=== PATIENT | female | born 1975 | race American Indian/Alaskan Native ===

== ENCOUNTER 2016-09-20 02:26 | Emergency (ER) | payer MEDICAID ==
[2016-09-20 03:09] VITALS: BP 120/74
[2016-09-20] MEDS ORDERED: traMADol 50 MG Tab PO ONE (03:21)
--- NOTE | 2016-09-20 03:25 | EDM.PDOC ---
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 LMP 3-19. denies dysuria. Sx tonight got worried. - Related Data Allergies/ADRs: Allergies Allergy/AdvReac Type Severity Reaction Status Date / Time codeine Allergy Chest Verified 09/20/16 03:11 Tightness Home Meds: Home Meds traMADol [Ultram] 50 mg PO BID 07/12/15 [History] Cyclobenzaprine [Flexeril] 10 mg PO Q8H PRN 01/02/16 [History] Naproxen Sodium 220 mg PO DAILY 01/02/16 [History] Ranitidine [Zantac] 150 mg PO DAILY 01/02/16 [History] SitaGLIPtin [Januvia] 50 mg PO DAILY 01/02/16 [History] glyBURIDE [Micronase] 10 mg PO BIDMEALS 01/02/16 [History] Past Medical History - Past Health History Medical/Surgical History: Denies Medical/Surgical History HEENT History: Reports: Impaired vision Other HEENT History: WEARS CORRECTIVE LENSES Cardiovascular History: Reports: None Respiratory History: Reports: None Gastrointestinal History: Reports: Other (see below) Other Gastrointestinal History: UMBILICAL HERNIA; VENTRAL HERNIA; ABNORMAL LIVER FUNCTION Genitourinary History: Reports: None 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: 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 History: Reports: Fracture, Other (see below) Other 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 History: DEGENERATIVE JOINT DISEASE; CARPAL TUNNEL SYNDROME; EPICONDYLITIS OF ELBOW; BILAT KNEE PAIN; Neurological History: Reports: Other (see below) Other Neuro History: CHRONIC HEADACHES Psychiatric History: Reports: Anxiety, Depression Endocrine/Metabolic History: Reports: Diabetes, type II, Obesity/BMI 30+ Hematologic History: Reports: Anemia Immunologic History: Reports: None Oncologic (Cancer) History: Reports: None Dermatologic History: Reports: None - Infectious Disease History Infectious Disease History: Reports: Chicken pox - Past Surgical History Head Surgeries/Procedures: Reports: None Cardiovascular Surgical History: Reports: None Respiratory Surgical History: Reports: None GI Surgical History: Reports: Cholecystectomy, Hernia repair/other Female Surgical History: Reports: None Endocrine Surgical History: Reports: None Neurological Surgical History: Reports: None 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 Surgical History: Reports: Arthroscopic knee, ORIF, Other (see below) Other 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 Surgeries/Procedures:: INJECTION KNEE, ANKLE Oncologic Surgical History: Reports: None Dermatological Surgical History: Reports: None Social & Family History - Tobacco Use Smoking Status *Q: Current Every Day Smoker Years of Tobacco use: 20 Packs/Tins Daily: 4 Used Tobacco, but Quit: No Month Tobacco Last Used: 11/2015 Second Hand Smoke Exposure: Yes - Caffeine Use Caffeine Use: Reports: Coffee, Soda - Alcohol Use Days Per Week of Alcohol Use: 0 - Recreational Drug Use Recreational Drug Use: No Drug Use in Last 12 Months: No ED ROS GENERAL - Review of Systems Review Of Systems: ROS reveals no pertinent complaints other than HPI. ED EXAM, GI/ABD - Physical Exam Exam: See Below Exam Limited By: No limitations General Appearance: alert, WD/WN, mild distress, other (upset) Ears: hearing grossly normal Throat/Mouth: Normal voice, No airway compromise Head: atraumatic Neck: non-tender, full range of motion Respiratory/Chest: no respiratory distress Cardiovascular: regular rate, rhythm GI/Abdominal: tenderness, other (suprapubic). No: guarding, rebound, rigidity Neurological: alert, oriented, normal cognition, normal gait, no motor/sensory deficits Psychiatric: flat affect Skin Exam: Warm, Dry Lymphatic: no adenopathy Course - Vital Signs Last Recorded V/S: Last Vital Signs Temp 35.7 C 09/20/16 02:53 Pulse 80 09/20/16 02:53 Resp 18 09/20/16 02:53 BP 120/74 09/20/16 02:53 Pulse Ox 100 09/20/16 02:53 - Orders/Labs/Meds Labs: Laboratory Tests 09/20/16 09/20/16 09/20/16 Range/Units 02:54 02:54 02:54 Urine Color Red (YELLOW) Urine Appearance Turbid (CLEAR) Urine pH 6.0 (5.0-9.0) Ur Specific [place] 1.020 (1.005-1.030) Urine Protein 30 H (NEGATIVE) Urine Glucose (UA) 500 H (NEGATIVE) Urine Ketones Trace H (NEGATIVE) Urine Occult Blood Large H (NEGATIVE) Urine Nitrite Negative (NEGATIVE) Urine Bilirubin Negative (NEGATIVE) Urine Urobilinogen 0.2 (0.2-1.0) mg/dL Ur Leukocyte Esterase Negative (NEGATIVE) Urine RBC Semi-packed H /HPF Urine WBC Not seen (0-5/HPF) /HPF Urine Bacteria Rare (0-FEW/HPF) /HPF Urine HCG, Qual Negative Urine Opiates Screen Negative (NEGATIVE) Ur Oxycodone Screen Negative (NEGATIVE) Urine Methadone Screen Negative (NEGATIVE) Ur Barbiturates Screen Negative (NEGATIVE) U Tricyclic Antidepress Negative (NEGATIVE) Ur Phencyclidine Scrn Negative (NEGATIVE) Ur Amphetamine Screen Negative (NEGATIVE) U Methamphetamines Scrn Negative (NEGATIVE) Urine MDMA Screen Negative (NEGATIVE) U Benzodiazepines Scrn Negative (NEGATIVE) Urine Cocaine Screen Negative (NEGATIVE) U Marijuana (THC) Screen Negative (NEGATIVE) - Re-Assessments/Exams Free Text/Narrative Re-Assessment/Exam: 09/20/16 03:23 results discussed with Pt. Departure - Departure Time of Disposition: 03:25 Disposition: Home, Self-Care 01 Condition: good Clinical Impression: Dysmenorrhea Instructions: Dysmenorrhea, [id number] Forms: ED Department Discharge Additional Instructions: 1) rest and avoid bending lifting straining 2) see clinic tomorrow for PELVIC ULTRASOUND.
== END 2016-09-20 03:29 | disposition home or self-care (01) ==
LOC: DL.ED 02:26
DX: N94.6 Dysmenorrhea, unspecified (principal); F41.9 Anxiety disorder, unspecified; F32.9 Major depressive disorder, single episode, unspecified; E11.9 Type 2 diabetes mellitus without complications; E66.9 Obesity, unspecified; F17.210 Nicotine dependence, cigarettes, uncomplicated; Z88.5 Allergy status to narcotic agent; Z79.899 Other long term (current) drug therapy; Z86.2 Personal history of diseases of the blood and blood-forming organs and certain disorders involving the immune mechanism
CPT/HCPCS: 80305; 81001; 81025; 99283; A9270

== ENCOUNTER 2017-01-09 16:40 | Emergency (ER) | payer MEDICAID ==
--- NOTE | 2017-01-09 17:03 | EDM.PDOC ---
ED HPI GENERAL MEDICAL PROBLEM - General Chief Complaint: ENT Problem Stated Complaint: SEVERE TOOTH,HEADACHE/EARACHE, [id number] Time Seen by Provider: 01/09/17 18:15 Source of Information: Reports: Patient, RN, RN Notes Reviewed History Limitations: Reports: No Limitations - History of Present Illness INITIAL COMMENTS - FREE TEXT/NARRATIVE: Complaining of dental pain at right upper tooth/gums. No fevers or chills. Onset: Today Location: Reports: Other (mouth) Quality: Reports: Ache Severity: Severe Improves with: Reports: None Worsens with: Reports: None Associated Symptoms: Reports: No Other Symptoms Right Upper Oral/Mouth Pain Score (Numeric/FACES): 8 - Related Data Allergies Allergy/AdvReac Type Severity Reaction Status Date / Time codeine Allergy Chest Verified 01/09/17 17:17 Tightness Home Meds: Home Meds traMADol [Ultram] 50 mg PO BID 07/12/15 [History] Cyclobenzaprine [Flexeril] 10 mg PO Q8H PRN 01/02/16 [History] Naproxen Sodium 220 mg PO DAILY 01/02/16 [History] Ranitidine [Zantac] 150 mg PO DAILY 01/02/16 [History] SitaGLIPtin [Januvia] 50 mg PO DAILY 01/02/16 [History] glyBURIDE [Micronase] 10 mg PO BIDMEALS 01/02/16 [History] Past Medical History - Past Health History Medical/Surgical History: Denies Medical/Surgical History HEENT History: Reports: Impaired Vision Other HEENT History: WEARS CORRECTIVE LENSES Cardiovascular History: Reports: None Respiratory History: Reports: None Gastrointestinal History: Reports: Other (See Below) Other Gastrointestinal History: UMBILICAL HERNIA; VENTRAL HERNIA; ABNORMAL LIVER FUNCTION Genitourinary History: Reports: None 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 History: Reports: Fracture, Other (See Below) Other 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 History: DEGENERATIVE JOINT DISEASE; CARPAL TUNNEL SYNDROME; EPICONDYLITIS OF ELBOW; BILAT KNEE PAIN; Neurological History: Reports: Other (See Below) Other Neuro History: CHRONIC HEADACHES Psychiatric History: Reports: Anxiety, Depression Endocrine/Metabolic History: Reports: Diabetes, Type II, Obesity/BMI 30+ Hematologic History: Reports: Anemia Immunologic History: Reports: None Oncologic (Cancer) History: Reports: None Dermatologic History: Reports: None - Infectious Disease History Infectious Disease History: Reports: Chicken Pox - Past Surgical History GI Surgical History: Reports: Cholecystectomy, Hernia Repair/Other 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 Surgical History: Reports: Arthroscopic Knee, ORIF, Other (See Below) Social & Family History - Tobacco Use Smoking Status *Q: Current Every Day Smoker Years of Tobacco use: 20 Packs/Tins Daily: 4 Used Tobacco, but Quit: No Month Tobacco Last Used: 11/2015 Second Hand Smoke Exposure: Yes - Caffeine Use Caffeine Use: Reports: Coffee, Soda - Alcohol Use Days Per Week of Alcohol Use: 0 - Recreational Drug Use Recreational Drug Use: No Drug Use in Last 12 Months: No ED ROS ENT - Review of Systems Review Of Systems: ROS reveals no pertinent complaints other than HPI. ED EXAM, ENT - Physical Exam Exam: See Below Exam Limited By: No Limitations General Appearance: Alert, WD/WN, No Apparent Distress, Obese Eye Exam: Bilateral Eye: Normal Inspection Ears: Normal External Exam, Normal Canal, Hearing Grossly Normal, Normal TMs Nose: Normal Inspection, Normal Mucousa, No Blood Mouth/Throat: Other (dental abscess at right maxillary premolar and posterior molar without fluctuance or drainage. No facial swelling. ) Head: Atraumatic, Normocephalic Neck: Normal Inspection, Supple, Non-Tender, Full Range of Motion Respiratory/Chest: No Respiratory Distress Cardiovascular: Normal Peripheral Pulses, Regular Rate, Rhythm, No Edema, No Gallop, No JVD, No Murmur, No Rub Neurological: Alert, Oriented, CN II-XII Intact, Normal Cognition, Normal Gait, Normal Reflexes, No Motor/Sensory Deficits Psychiatric: Normal Affect, Normal Mood Skin: Warm, Dry, Intact, Normal Color, No Rash Lymphatic: No Adenopathy Course - Vital Signs Last Recorded V/S: Last Vital Signs Temp 36.1 C 01/09/17 17:17 Pulse 85 01/09/17 17:17 Resp 18 01/09/17 17:17 BP 150/89 H 01/09/17 17:17 Pulse Ox 98 01/09/17 17:17 Departure - Departure Time of Disposition: 18:25 Disposition: Home, Self-Care 01 Condition: Good Clinical Impression: Dental abscess - Discharge Information Instructions: Dental Abscess, [id number] Forms: ED Department Discharge Additional Instructions: RX: Clindamycin 300mg. RX: Tramadol 50mg. RX: Viscous lidocaine 2%. Follow with dentist as scheduled.
[2017-01-09 17:21] VITALS: BP 150/89
[2017-01-09] MEDS ORDERED: Clindamycin HCl 150 MG Cap PO ONE (18:25)
[2017-01-09] MEDS ORDERED: traMADol 50 MG Tab PO ONE (18:26)
[2017-01-09] MEDS ORDERED: Lidocaine 2% Viscous Solution 15 ML Cup PO ONE (18:26)
== END 2017-01-09 18:41 | disposition home or self-care (01) ==
LOC: DL.ED 16:40
DX: K04.7 Periapical abscess without sinus (principal); F41.9 Anxiety disorder, unspecified; F32.9 Major depressive disorder, single episode, unspecified; E11.9 Type 2 diabetes mellitus without complications; F17.210 Nicotine dependence, cigarettes, uncomplicated; E66.9 Obesity, unspecified; Z68.39 Body mass index [BMI] 39.0-39.9, adult; Z90.49 Acquired absence of other specified parts of digestive tract; Z98.890 Other specified postprocedural states; Z88.5 Allergy status to narcotic agent; Z79.899 Other long term (current) drug therapy
CPT/HCPCS: 99282; A9270

== ENCOUNTER 2017-07-02 17:40 | Emergency (ER) | payer SELFPAY ==
[2017-07-02] MEDS ORDERED: Amoxicillin 500 MG Cap PO ONE (19:56)
[2017-07-02] MEDS ORDERED: Ketorolac 30 MG/ML SDV IM ONE (19:56)
--- NOTE | 2017-07-02 20:00 | EDM.PDOC ---
ED HPI GENERAL MEDICAL PROBLEM - General Chief Complaint: ENT Problem Stated Complaint: ABCESS TOOTH, [id number] Time Seen by Provider: 07/02/17 19:47 Source of Information: Reports: Patient History Limitations: Reports: No Limitations - History of Present Illness INITIAL COMMENTS - FREE TEXT/NARRATIVE: Ed with c/o right upper dental pain radiating toright ear, started last susan. Has tried aleve and ambesol and not helping. Reports attempting to be seen by dentist at [facility] today and was told they were full and to try again tomorrow. No chills or fever. Right Upper Gums Pain Score (Numeric/FACES): 9 - Related Data Allergies Allergy/AdvReac Type Severity Reaction Status Date / Time codeine Allergy Chest Verified 07/02/17 17:47 Tightness Home Meds: Home Meds traMADol [Ultram] 50 mg PO BID 07/12/15 [History] Cyclobenzaprine [Flexeril] 10 mg PO Q8H PRN 01/02/16 [History] Naproxen Sodium 220 mg PO DAILY 01/02/16 [History] Ranitidine [Zantac] 150 mg PO DAILY 01/02/16 [History] SitaGLIPtin [Januvia] 50 mg PO DAILY 01/02/16 [History] glyBURIDE [Micronase] 10 mg PO BIDMEALS 01/02/16 [History] Past Medical History - Past Health History Medical/Surgical History: Denies Medical/Surgical History HEENT History: Reports: Impaired Vision Other HEENT History: WEARS CORRECTIVE LENSES Cardiovascular History: Reports: None Respiratory History: Reports: None Gastrointestinal History: Reports: Other (See Below) Other Gastrointestinal History: UMBILICAL HERNIA; VENTRAL HERNIA; ABNORMAL LIVER FUNCTION Genitourinary History: Reports: None 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: Reports: Fracture, Other (See Below) Other 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 History: DEGENERATIVE JOINT DISEASE; CARPAL TUNNEL SYNDROME; EPICONDYLITIS OF ELBOW; BILAT KNEE PAIN; Neurological History: Reports: Other (See Below) Other Neuro History: CHRONIC HEADACHES Psychiatric History: Reports: Anxiety, Depression Endocrine/Metabolic History: Reports: Diabetes, Type II, Obesity/BMI 30+ Hematologic History: Reports: Anemia Immunologic History: Reports: None Oncologic (Cancer) History: Reports: None Dermatologic History: Reports: None - Infectious Disease History Infectious Disease History: Reports: Chicken Pox - Past Surgical History Head Surgeries/Procedures: Reports: None GI Surgical History: Reports: Cholecystectomy, Hernia Repair/Other 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 Surgical History: Reports: Arthroscopic Knee, ORIF, Other (See Below) Social & Family History - Tobacco Use Smoking Status *Q: Current Every Day Smoker Years of Tobacco use: 24 Packs/Tins Daily: 0.1 Used Tobacco, but Quit: No Month Tobacco Last Used: 11/2015 Second Hand Smoke Exposure: Yes - Caffeine Use Caffeine Use: Reports: Coffee, Soda - Alcohol Use Days Per Week of Alcohol Use: 0 - Recreational Drug Use Recreational Drug Use: No Drug Use in Last 12 Months: No ED ROS ENT - Review of Systems Review Of Systems: See Below Constitutional: Denies: Fever, Chills HEENT: Reports: Dental Pain, Ear Pain (right) Respiratory: Reports: No Symptoms Cardiovascular: Reports: No Symptoms GI/Abdominal: Reports: No Symptoms : Reports: No Symptoms 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: Reports: No Symptoms ED EXAM, ENT - Physical Exam Exam: See Below Exam Limited By: No Limitations General Appearance: Alert, Mild Distress Eye Exam: Bilateral Eye: EOMI Ears: Normal External Exam, Normal TMs Nose: Normal Inspection Mouth/Throat: Dental Pain, Dental Tenderness. No: Normal Teeth (door dentation , multiple areas of decay in molar area. right lateral gum mild swelling and tender right inscisor to upper 2nd molar. mild maxillary tenderness on right mid with palpation), Dental Trauma Head: Atraumatic, Normocephalic Neck: Lymphadenopathy (R) Respiratory/Chest: No Respiratory Distress, Lungs Clear, Normal Breath Sounds Cardiovascular: Normal Peripheral Pulses, Regular Rate, Rhythm GI/Abdominal: Normal Bowel Sounds Neurological: Alert, Oriented Psychiatric: Normal Affect Skin: Warm, Dry, Intact, Normal Color Course - Vital Signs Last Recorded V/S: Last Vital Signs Temp 98.4 F 07/02/17 20:06 Pulse 74 07/02/17 20:06 Resp 16 07/02/17 20:06 BP 148/90 H 07/02/17 20:06 Pulse Ox 98 07/02/17 20:06 - Orders/Labs/Meds Meds: Medications Discontinued Medications Generic Name Dose Route Start Last Admin Trade Name Freq PRN Reason Stop Dose Admin Amoxicillin 500 mg 07/02/17 19:56 07/02/17 20:02 Amoxil PO 07/02/17 19:57 500 mg ONETIME ONE Administration Ketorolac Tromethamine 30 mg 07/02/17 19:56 07/02/17 20:02 Toradol IM 07/02/17 19:57 30 mg ONETIME ONE Administration Departure - Departure Time of Disposition: 20:00 Disposition: Home, Self-Care 01 Condition: Good Clinical Impression: Dental caries, Pain due to dental caries, Dental abscess - Discharge Information Instructions: Dental Abscess, [id number] Referrals: Leyda Almonte MD [Primary Care Provider] - Forms: ED Department Discharge Additional Instructions: amoxicillin 500mg one three times daily for one week tramadol as prescribed by PCP as needed for pain, may take one tylenol with tramadol follow up with dentist tomorrow
[2017-07-02 20:06] VITALS: BP 148/90
== END 2017-07-02 20:16 | disposition home or self-care (01) ==
LOC: DL.ED 17:40
DX: K02.9 Dental caries, unspecified (principal); K04.7 Periapical abscess without sinus; E11.9 Type 2 diabetes mellitus without complications; F17.210 Nicotine dependence, cigarettes, uncomplicated; Z88.5 Allergy status to narcotic agent; Z79.899 Other long term (current) drug therapy
CPT/HCPCS: 96372; 99282; A9270; J1885

== ENCOUNTER 2017-08-15 21:11 | Emergency (ER) | payer MEDICAID ==
[2017-08-15 21:37] VITALS: BP 120/83
--- NOTE | 2017-08-15 22:51 | EDM.PDOC ---
ED HPI GENERAL MEDICAL PROBLEM - General Chief Complaint: General Stated Complaint: SIDE PAIN [id number] Time Seen by Provider: 08/15/17 22:00 Source of Information: Reports: Patient History Limitations: Reports: No Limitations - History of Present Illness INITIAL COMMENTS - FREE TEXT/NARRATIVE: c/o pain to right lateral ribs. Reports slipping on dryer sheet in laundry room , then falling on to left side over grandchild"s walker. Right Lower Chest Pain Score (Numeric/FACES): 9 - Related Data Allergies Allergy/AdvReac Type Severity Reaction Status Date / Time codeine Allergy Chest Verified 08/15/17 21:37 Tightness Home Meds: Home Meds traMADol [Ultram] 50 mg PO BID 07/12/15 [History] Cyclobenzaprine [Flexeril] 10 mg PO Q8H PRN 01/02/16 [History] Naproxen Sodium 220 mg PO DAILY 01/02/16 [History] Ranitidine [Zantac] 150 mg PO DAILY 01/02/16 [History] SitaGLIPtin [Januvia] 50 mg PO DAILY 01/02/16 [History] glyBURIDE [Micronase] 10 mg PO BIDMEALS 01/02/16 [History] Past Medical History - Past Health History Medical/Surgical History: Denies Medical/Surgical History HEENT History: Reports: Impaired Vision Other HEENT History: WEARS CORRECTIVE LENSES Cardiovascular History: Reports: None Respiratory History: Reports: None Gastrointestinal History: Reports: Other (See Below) Other Gastrointestinal History: UMBILICAL HERNIA; VENTRAL HERNIA; ABNORMAL LIVER FUNCTION Genitourinary History: Reports: 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: 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: Fracture, Other (See Below) Other 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 History: DEGENERATIVE JOINT DISEASE; CARPAL TUNNEL SYNDROME; EPICONDYLITIS OF ELBOW; BILAT KNEE PAIN; Neurological History: Reports: Other (See Below) Other Neuro History: CHRONIC HEADACHES Psychiatric History: Reports: Anxiety, Depression Endocrine/Metabolic History: Reports: Diabetes, Type II, Obesity/BMI 30+ Hematologic History: Reports: Anemia Immunologic History: Reports: None Oncologic (Cancer) History: Reports: None Dermatologic History: Reports: None - Infectious Disease History Infectious Disease History: Reports: Chicken Pox - Past Surgical History Head Surgeries/Procedures: Reports: None GI Surgical History: Reports: Cholecystectomy, Hernia Repair/Other 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 Surgical History: Reports: Arthroscopic Knee, ORIF, Other (See Below) Social & Family History - Family History Family Medical History: Noncontributory - Tobacco Use Smoking Status *Q: Current Every Day Smoker Years of Tobacco use: 21 Packs/Tins Daily: 0.1 Used Tobacco, but Quit: No Month Tobacco Last Used: 11/2015 Second Hand Smoke Exposure: No - Caffeine Use Caffeine Use: Reports: None - Alcohol Use Days Per Week of Alcohol Use: 0 - Recreational Drug Use Recreational Drug Use: No Drug Use in Last 12 Months: No ED ROS GENERAL - Review of Systems Review Of Systems: See Below Constitutional: Reports: No Symptoms HEENT: Reports: No Symptoms Respiratory: Reports: Pleuritic Chest Pain. Denies: Shortness of Breath Cardiovascular: Reports: No Symptoms GI/Abdominal: Reports: No Symptoms ED EXAM, GENERAL - Physical Exam Exam: See Below Exam Limited By: No Limitations General Appearance: Alert, Mild Distress Eye Exam: Bilateral Eye: EOMI Ears: Normal External Exam Nose: Normal Inspection Throat/Mouth: Normal Inspection Head: Atraumatic, Normocephalic Neck: Normal Inspection Respiratory/Chest: No Respiratory Distress, Lungs Clear, Splinting. No: Chest Non-Tender, Rhonchi, Wheezing, Pleural Rub Cardiovascular: Normal Peripheral Pulses, Regular Rate, Rhythm GI/Abdominal: Soft Extremities: Normal Inspection Neurological: Alert, Oriented, Normal Cognition Psychiatric: Normal Affect Skin Exam: Warm, Dry, Intact, Normal Color. No: Ecchymosis Course - Vital Signs Last Recorded V/S: Last Vital Signs Temp 98.6 F 08/15/17 21:25 Pulse 90 08/15/17 21:25 Resp 20 08/15/17 21:25 BP 120/83 08/15/17 21:25 Pulse Ox 100 08/15/17 21:25 - Radiology Interpretation Free Text/Narrative:: CXR : Normal Departure - Departure Time of Disposition: 23:56 Disposition: Home, Self-Care 01 Condition: Good Clinical Impression: Rib pain on right side - Discharge Information Instructions: Rib Contusion Referrals: Leyda Almonte MD [Primary Care Provider] - Forms: ED Department Discharge Additional Instructions: continue home medication tylenol 650mg every 4 hours as needed, may continue with tramadol as previous order twice daily with ibuprofen 600mg one time mid day as needed for pain deep breathing exercises every 1-2 hours while awake
== END 2017-08-16 00:09 | disposition home or self-care (01) ==
LOC: DL.ED 21:11
DX: R07.81 Pleurodynia (principal); F32.9 Major depressive disorder, single episode, unspecified; E11.9 Type 2 diabetes mellitus without complications; F17.210 Nicotine dependence, cigarettes, uncomplicated; Z79.84 Long term (current) use of oral hypoglycemic drugs; Z79.899 Other long term (current) drug therapy; Z88.5 Allergy status to narcotic agent; W01.0XXA Fall on same level from slipping, tripping and stumbling without subsequent striking against object, initial encounter; Y92.89 Other specified places as the place of occurrence of the external cause
CPT/HCPCS: 71100-RT; 99283

== ENCOUNTER 2018-01-26 20:28 | Emergency (ER) | payer MEDICAID ==
[2018-01-26] MEDS ORDERED: Ondansetron 4 MG Tab.DIS PO ONE (20:29)
[2018-01-26] MEDS ORDERED: Sodium Chloride 0.9% 10 ML Syringe FLUSH PRN (21:16)
[2018-01-26] MEDS ORDERED: Sodium Chloride 0.9% 1,000 ML IV ONE (21:22)
[2018-01-26] MEDS ORDERED: Ondansetron 4 MG/2 ML SDV IV ONE (21:22)
--- NOTE | 2018-01-26 21:27 | EDM.PDOC ---
ED HPI GENERAL MEDICAL PROBLEM - General Chief Complaint: Abdominal Pain Stated Complaint: PAIN IN STOMACH Time Seen by Provider: 01/26/18 21:16 Source of Information: Reports: Patient History Limitations: Reports: No Limitations - History of Present Illness INITIAL COMMENTS - FREE TEXT/NARRATIVE: she comes emergency department today with complaints of abdominal pain. Over the past 2 weeks she has had persistent abdominal pain that is slowly gotten worse. She does have a history of an abdominal wall hernia that has been repaired in the past and it feels like it is opened up again. When she stands up she feels something move into her skin and is quite painful. Over the past couple of days the pain is gotten worse and is more difficult for her to push the lump back in. She has had nausea vomiting and some diarrhea. Everything that she eats or drinks goes right through her and she ends up with diarrhea. No fever no chills. No chest pain no shortness of breath or difficulty breathing. No hematuria dysuria or urinary frequency. No black or tarry stools. No flank pain. Abdomen Pain Score (Numeric/FACES): 7 - Related Data Allergies Allergy/AdvReac Type Severity Reaction Status Date / Time codeine Allergy Chest Verified 01/26/18 20:56 Tightness Home Meds: Home Meds traMADol [Ultram] 50 mg PO BID 07/12/15 [History] Cyclobenzaprine [Flexeril] 10 mg PO Q8H PRN 01/02/16 [History] Naproxen Sodium 220 mg PO DAILY 01/02/16 [History] Ranitidine [Zantac] 150 mg PO DAILY 01/02/16 [History] SitaGLIPtin [Januvia] 50 mg PO DAILY 01/02/16 [History] glyBURIDE [Micronase] 10 mg PO BIDMEALS 01/02/16 [History] Insulin Aspart [NovoLOG] 3 units SQ DAILY 01/26/18 [History] Past Medical History - Past Health History Medical/Surgical History: Denies Medical/Surgical History HEENT History: Reports: Impaired Vision Other HEENT History: WEARS CORRECTIVE LENSES Cardiovascular History: Reports: None Respiratory History: Reports: None Gastrointestinal History: Reports: Other (See Below) Other Gastrointestinal History: UMBILICAL HERNIA; VENTRAL HERNIA; ABNORMAL LIVER FUNCTION Genitourinary History: Reports: None DIRECTOR INPATIENT HEADACHE PROGRAM History: Reports: 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 History: Reports: Fracture, Other (See Below) Other 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 History: DEGENERATIVE JOINT DISEASE; CARPAL TUNNEL SYNDROME; EPICONDYLITIS OF ELBOW; BILAT KNEE PAIN; Neurological History: Reports: Other (See Below) Other Neuro History: CHRONIC HEADACHES Psychiatric History: Reports: Anxiety, Depression Endocrine/Metabolic History: Reports: Diabetes, Type II, Obesity/BMI 30+ Hematologic History: Reports: Anemia Immunologic History: Reports: None Oncologic (Cancer) History: Reports: None Dermatologic History: Reports: None - Infectious Disease History Infectious Disease History: Reports: Chicken Pox - Past Surgical History Head Surgeries/Procedures: Reports: None GI Surgical History: Reports: Cholecystectomy, Hernia Repair/Other 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 Surgical History: Reports: Arthroscopic Knee, ORIF, Other (See Below) Social & Family History - Family History Family Medical History: Noncontributory - Tobacco Use Smoking Status *Q: Current Some Day Smoker Years of Tobacco use: 20 Packs/Tins Daily: 1 - Caffeine Use Caffeine Use: Reports: Soda - Recreational Drug Use Recreational Drug Use: No ED ROS GENERAL - Review of Systems Review Of Systems: ROS reveals no pertinent complaints other than HPI. ED EXAM, GI/ABD - Physical Exam Exam: See Below Text/Narrative:: she appears in no acute distress. Exam Limited By: No Limitations General Appearance: Alert, WD/WN Ears: Normal External Exam Nose: Normal Inspection Throat/Mouth: Normal Inspection, Normal Lips, Normal Oropharynx Head: Atraumatic Neck: Normal Inspection Respiratory/Chest: No Respiratory Distress, No Accessory Muscle Use Cardiovascular: Normal Peripheral Pulses, Regular Rate, Rhythm GI/Abdominal Exam: Soft, No Distention, No Abnormal Bruit, Abnormal Bowel Sounds (decreased), Hernia (hen she is laying flat I do not feel any hernia or masses on her abdomen. Although when she stands up I can feel a hernia just above her umbilicus in the midline which is easily reducible.). No: Distended, Guarding, Rebound, Tender (Female) Exam: Deferred Rectal (Female) Exam: Deferred Back Exam: Normal Inspection, Full Range of Motion. No: CVA Tenderness (L), CVA Tenderness (R) Extremities: Normal Inspection, Normal Range of Motion, Normal Capillary Refill Neurological: Alert, Oriented Psychiatric: Normal Affect, Normal Mood Skin Exam: Warm, Dry, Intact, Normal Color Course - Vital Signs Last Recorded V/S: Last Vital Signs Temp 36.6 C 08/20/18 22:47 Pulse 101 H 01/26/18 22:47 Resp 19 01/26/18 22:47 BP 127/76 01/26/18 22:47 Pulse Ox 100 01/26/18 22:47 - Orders/Labs/Meds Orders: Active Orders 24 hr Category Date Time Status Peripheral IV Care [RC] . DIRECTED Care 01/26/18 21:16 Active HCG QUALITATIVE,URINE [URCHEM] Stat Lab 01/26/18 20:35 Ordered Peripheral IV Insertion Adult [OM.PC] Stat Oth 01/26/18 21:15 Ordered Labs: Laboratory Tests 01/26/18 01/26/18 01/26/18 Range/Units 20:35 20:35 21:20 WBC 12.5 H (5.0-10.0) 10^3/uL RBC 4.72 (4.2-5.4) 10^6/uL Hgb 11.6 L (12.0-16.0) g/dL Hct 36.3 L (37.0-47.0) % MCV 76.9 L (80-100) fL MCH 24.6 L (27.0-34.0) pg MCHC 32.0 L (33.0-35.0) g/dL Plt Count 293 (150-450) 10^3/uL Neut % (Auto) 73.7 (42.2-75.2) % Lymph % (Auto) 17.0 L (20.5-50.1) % [place] % (Auto) 5.8 (2-8) % Eos % (Auto) 3.1 H (1.0-3.0) % Baso % (Auto) 0.4 (0.0-1.0) % Sodium (135-145) mmol/L Potassium (3.6-5.0) mmol/L Chloride (101-111) mmol/L Carbon Dioxide (21.0-31.0) mmol/L Anion Gap BUN (7-18) mg/dL Creatinine (0.6-1.3) mg/dL Est Cr Clr Drug Dosing mL/min Estimated GFR (MDRD) BUN/Creatinine Ratio Glucose (74-105) mg/dL Lactic Acid (0.5-2.2) mmol/L Calcium (8.4-10.2) mg/dl Total Bilirubin (0.2-1.0) mg/dL AST (10-42) IU/L ALT (10-60) IU/L Alkaline Phosphatase (42-121) IU/L C-Reactive Protein (0.0-1.3) mg/dL Total Protein (6.7-8.2) g/dl Albumin (3.2-5.5) g/dl Globulin Albumin/Globulin Ratio Urine Color Dark yellow (YELLOW) Urine Appearance Cloudy (CLEAR) Urine pH 5.5 (5.0-9.0) Ur Specific [place] 1.025 (1.005-1.030) Urine Protein 30 H (NEGATIVE) Urine Glucose (UA) Negative (NEGATIVE) Urine Ketones 15 H (NEGATIVE) Urine Occult Blood Negative (NEGATIVE) Urine Nitrite Negative (NEGATIVE) Urine Bilirubin Small H (NEGATIVE) Urine Urobilinogen 1.0 (0.2-1.0) mg/dL Ur Leukocyte Esterase Negative (NEGATIVE) Urine RBC 0-5 /HPF Urine WBC 0-5 (0-5/HPF) /HPF Ur Epithelial Cells Occasional /HPF Urine Bacteria Few (0-FEW/HPF) /HPF Hyaline Casts Rare H /LPF Urine Mucus Moderate H /LPF Urine HCG, Qual Negative 01/26/18 01/26/18 01/26/18 Range/Units 21:20 21:20 21:20 WBC (5.0-10.0) 10^3/uL RBC (4.2-5.4) 10^6/uL Hgb (12.0-16.0) g/dL Hct (37.0-47.0) % MCV (80-100) fL MCH (27.0-34.0) pg MCHC (33.0-35.0) g/dL Plt Count (150-450) 10^3/uL Neut % (Auto) (42.2-75.2) % Lymph % (Auto) (20.5-50.1) % [place] % (Auto) (2-8) % Eos % (Auto) (1.0-3.0) % Baso % (Auto) (0.0-1.0) % Sodium 137 (135-145) mmol/L Potassium 3.8 (3.6-5.0) mmol/L Chloride 103 (101-111) mmol/L Carbon Dioxide 27.0 (21.0-31.0) mmol/L Anion Gap 10.8 BUN 11 (7-18) mg/dL Creatinine 0.7 (0.6-1.3) mg/dL Est Cr Clr Drug Dosing 98.01 mL/min Estimated GFR (MDRD) > 60 BUN/Creatinine Ratio 15.71 Glucose 153 H (74-105) mg/dL Lactic Acid 1.4 (0.5-2.2) mmol/L Calcium 8.4 (8.4-10.2) mg/dl Total Bilirubin 0.6 (0.2-1.0) mg/dL AST 23 (10-42) IU/L ALT 14 (10-60) IU/L Alkaline Phosphatase 112 (42-121) IU/L C-Reactive Protein 7.2 H (0.0-1.3) mg/dL Total Protein 7.1 (6.7-8.2) g/dl Albumin 3.2 (3.2-5.5) g/dl Globulin 3.9 Albumin/Globulin Ratio 0.82 Urine Color (YELLOW) Urine Appearance (CLEAR) Urine pH (5.0-9.0) Ur Specific [place] (1.005-1.030) Urine Protein (NEGATIVE) Urine Glucose (UA) (NEGATIVE) Urine Ketones (NEGATIVE) Urine Occult Blood (NEGATIVE) Urine Nitrite (NEGATIVE) Urine Bilirubin (NEGATIVE) Urine Urobilinogen (0.2-1.0) mg/dL Ur Leukocyte Esterase (NEGATIVE) Urine RBC /HPF Urine WBC (0-5/HPF) /HPF Ur Epithelial Cells /HPF Urine Bacteria (0-FEW/HPF) /HPF Hyaline Casts /LPF Urine Mucus /LPF Urine HCG, Qual Meds: Medications Discontinued Medications Generic Name Dose Route Start Last Admin Trade Name Freq PRN Reason Stop Dose Admin Sodium Chloride 1,000 mls @ 1,000 mls/hr 01/26/18 21:22 01/26/18 21:30 Normal Saline IV 01/26/18 22:21 1,000 mls/hr .BOLUS ONE Administration Ondansetron HCl 4 mg 01/26/18 21:22 01/26/18 21:28 Zofran IV 01/26/18 21:23 4 mg ONETIME ONE Administration Ondansetron HCl Confirm 01/26/18 23:04 01/27/18 00:14 Zofran Odt Administered 01/26/18 23:05 Not Given Dose 8 mg .ROUTE .STK-MED ONE Sodium Chloride 10 ml 01/26/18 21:16 01/26/18 21:20 Saline Flush FLUSH 10 ml ASDIRECTED PRN Administration Keep Vein Open - Radiology Interpretation Free Text/Narrative:: CT scan per radiology.there has been a cholecystectomy. Mild gastric distention with retained secretions. Correlation to exclude gastroparesis suggested. Wall thiing of several small bowel loops in the upper abdomen particularly in the left abdomen may suggest enteritis. - Re-Assessments/Exams Free Text/Narrative Re-Assessment/Exam: 01/27/18 01:09 after the IV fluid and the nausea the patient felt much better. I relayed the results the patient that appear to be enteritis.Which at this time include symptomatically management at home. There is no evidence of hernia per the CAT scan. I did talk with her about the importance of observation of a hernia present is unable to be reduced she needs to be seen emergently. Follow-up with her primary care doctor or surgeon for further evaluation of this recurrent reducible hernia. Symptomatic management at this time. Departure - Departure Time of Disposition: 22:55 Disposition: Home, Self-Care 01 Clinical Impression: Gastroenteritis - Discharge Information Instructions: Viral Gastroenteritis, Adult, [id number] Forms: ED Department Discharge Additional Instructions: Tylenol as needed for pain. No dairy until the resolution of the diarrhea. Gatorade and or Powerade to ensure you do not become dehydrated. BRATY diet until resolution especially yogurt with live cultures. Zofran 1 tablet every 6 hrs as needed for nausea. 2 sent home from the ED. RX given to the patient. REturn to the ED if new or worsening symptoms. Follow up with primary care in the next 4-6 days if not improving sooner if worse. - My Orders Last 24 Hours: My Active Orders 01/26/18 20:35 HCG QUALITATIVE,URINE [URCHEM] Stat 01/26/18 21:15 Peripheral IV Insertion Adult [OM.PC] Stat 01/26/18 21:16 Peripheral IV Care [RC] . DIRECTED - Assessment/Plan Last 24 Hours: My Active Orders 01/26/18 20:35 HCG QUALITATIVE,URINE [URCHEM] Stat 01/26/18 21:15 Peripheral IV Insertion Adult [OM.PC] Stat 01/26/18 21:16 Peripheral IV Care [RC] . DIRECTED Assessment:: Reducable abd wall hernia. gastroenteritis. Plan: Tylenol as needed for pain. No dairy until the resolution of the diarrhea. Gatorade and or Powerade to ensure you do not become dehydrated. BRATY diet until resolution especially yogurt with live cultures. Zofran 1 tablet every 6 hrs as needed for nausea. 2 sent home from the ED. RX given to the patient. REturn to the ED if new or worsening symptoms. Follow up with primary care in the next 4-6 days if not improving sooner if worse.
[2018-01-26 21:50] LABS: ANION GAP 10.8; CHLORIDE,CL 103 mmol/L (101-111); SODIUM,NA 137 mmol/L (135-145)
[2018-01-26] MEDS ORDERED: Iopamidol 612 MG/ML 75 ML Bottle IVPUSH ONE (22:00)
[2018-01-26 22:48] VITALS: BP 127/76
[2018-01-26] MEDS ORDERED: Ondansetron 4 MG Tab.DIS ONE (23:04)
== END 2018-01-26 23:08 | disposition home or self-care (01) ==
LOC: DL.ED 20:28
DX: K52.9 Noninfective gastroenteritis and colitis, unspecified (principal); K43.9 Ventral hernia without obstruction or gangrene; E11.9 Type 2 diabetes mellitus without complications; F41.9 Anxiety disorder, unspecified; F32.9 Major depressive disorder, single episode, unspecified; F17.210 Nicotine dependence, cigarettes, uncomplicated; Z79.4 Long term (current) use of insulin; Z88.5 Allergy status to narcotic agent; Z79.899 Other long term (current) drug therapy
CPT/HCPCS: 36415; 74177; 80053; 81001; 81025; 83605; 85025; 86140; 96361; 96374; 99284; A9270-GY; J2405; J7030; J7050; Q9967

== ENCOUNTER 2022-01-31 19:22 | Emergency (ER) | payer MEDICAID ==
[2022-01-31 20:28] VITALS: BP 135/74; PULSE 73
[2022-01-31 21:26] LABS: ANION GAP 11.4 mEq/L (7-13)
== END 2022-01-31 21:49 | disposition home or self-care (01) ==
LOC: DL.ED 19:22
DX: R53.1 Weakness (principal); E11.9 Type 2 diabetes mellitus without complications; F17.210 Nicotine dependence, cigarettes, uncomplicated; E66.9 Obesity, unspecified; Z68.32 Body mass index [BMI] 32.0-32.9, adult; Z88.5 Allergy status to narcotic agent; Z79.4 Long term (current) use of insulin
CPT/HCPCS: 36415; 80053; 82947; 83605; 84484; 85025; 87040; 93005; 93010; 99283; 99285

== ENCOUNTER 2024-04-28 16:44 | Emergency (ER) | payer MEDICAID ==
[2024-04-28 16:45] VITALS: BP 144/64; PULSE 71
[2024-04-28] MEDS: Albuterol 0.083% 2.5 MG/3 ML Neb Soln NEB ONE (16:57)
== END 2024-04-28 17:13 | disposition home or self-care (01) ==
LOC: DL.ED 16:44
DX: R06.2 Wheezing (principal); E11.9 Type 2 diabetes mellitus without complications; E66.9 Obesity, unspecified; Z90.49 Acquired absence of other specified parts of digestive tract; F17.210 Nicotine dependence, cigarettes, uncomplicated; Z79.4 Long term (current) use of insulin; Z79.899 Other long term (current) drug therapy; Z79.891 Long term (current) use of opiate analgesic; Z88.5 Allergy status to narcotic agent; Z68.35 Body mass index [BMI] 35.0-35.9, adult
CPT/HCPCS: 99285; J7613-GY

== ENCOUNTER 2025-03-31 00:16 | Observation (INO) | payer MEDICAID ==
[2025-03-31 01:00] LABS: BASOPHILS PERCENT AUTO 1.8 % (0.0-1.0); EOSINOPHILS PERCENT AUTO 7.2 % (1.0-3.0); LYMPHOCYTES PERCENT AUTO 29.7 % (20.5-50.1); MONOCYTES PERCENT AUTO 4.1 % (2-8); NEUTROPHILS PERCENT AUTO 57.2 % (42.2-75.2); PLATELET COUNT,PLT 233 10^3/uL (150-450); RED BLOOD CELL COUNT 5.17 10^6/uL (4.2-5.4); WHITE BLOOD CELL COUNT,WBC 9.6 10^3/uL (5.0-10.0)
[2025-03-31 01:10] LABS: ALANINE AMINOTRANSFERASE,ALT 226 U/L (14-59); ASPARTATE AMNIOTRANSFERASE,AST 126 U/L (15-37); BILIRUBIN TOTAL 0.5 mg/dL (0.2-1.0); BLOOD UREA NITROGEN,BUN 14 mg/dL (7-18); CARBON DIOXIDE,CO2 27 mmol/L (21-32); CHLORIDE,CL 100 mmol/L (98-107); CREATININE 0.78 mg/dL (0.55-1.02); EST CRCL DRUG DOSING (CG) 78.51 mL/min; POTASSIUM,K 3.9 mmol/L (3.5-5.1); PROTEIN TOTAL,TP 7.6 g/dL (6.4-8.2); SODIUM,NA 137 mmol/L (136-145)
[2025-03-31 01:11] LABS: A/G RATIO 0.77; ESTIMATED GFR 93 mL/min (>=60); ETHANOL BLOOD MEDICAL < 3 mg/dL (0); GLUCOSE RANDOM 451 mg/dL (70-99)
[2025-03-31] MEDS ORDERED: 50% Dextrose in Water 50 ML Syringe IVPUSH PRN ×3 (01:11→08:30)
[2025-03-31] MEDS: Insulin Regular, Human 100 Units/ML 10 ML Vial IV ONE ×2 (01:47→04:42)
[2025-03-31 03:53] LABS: BLOOD UREA NITROGEN,BUN 13.0 mg/dL (7-18); CARBON DIOXIDE,CO2 27.0 mmol/L (21-32); CHLORIDE,CL 105.0 mmol/L (98-107); CREATININE 0.63 mg/dL (0.55-1.02); EST CRCL DRUG DOSING (CG) 97.2 mL/min; ESTIMATED GFR 109.0 mL/min (>=60); GLUCOSE RANDOM 320.0 mg/dL (70-99); POTASSIUM,K 4.1 mmol/L (3.5-5.1); SODIUM,NA 140.0 mmol/L (136-145)
[2025-03-31] MEDS: diphenhydrAMINE 50 MG/ML SDV IVPUSH ONE (04:16)
[2025-03-31] MEDS ORDERED: hydrALAZINE 20 MG/ML SDV IVPUSH PRN (06:27)
[2025-03-31] MEDS ORDERED: Metoprolol Tartrate 5 MG/5 ML SDV IVPUSH PRN (06:27)
[2025-03-31] MEDS ORDERED: Magnesium Hydroxide 400 MG/5 ML Susp 30 ML Cup PO PRN (06:30)
[2025-03-31] MEDS ORDERED: Ondansetron 4 MG/2 ML SDV IVPUSH PRN (06:30)
[2025-03-31 08:38] LABS: CHOLESTEROL HDL 47 mg/dL (40-59); CHOLESTEROL LDL CALCULATED 96 mg/dL (0-100); CHOLESTEROL TOTAL 175 mg/dL (0-199)
[2025-03-31] MEDS ORDERED: Ketorolac 30 MG/ML SDV IVPUSH PRN (09:21)
[2025-03-31] MEDS: Insulin Glarg,Human.Rec.Analog 100 Unit/ML 10 ML Vial SUBCUT SCH (20:39)
[2025-04-01 06:30] LABS: BASOPHILS PERCENT AUTO 2.2 % (0.0-1.0); EOSINOPHILS PERCENT AUTO 7.5 % (1.0-3.0); LYMPHOCYTES PERCENT AUTO 29.2 % (20.5-50.1); MONOCYTES PERCENT AUTO 6.0 % (2-8); NEUTROPHILS PERCENT AUTO 55.1 % (42.2-75.2); PLATELET COUNT,PLT 200 10^3/uL (150-450); RED BLOOD CELL COUNT 4.69 10^6/uL (4.2-5.4); WHITE BLOOD CELL COUNT,WBC 7.8 10^3/uL (5.0-10.0)
[2025-04-01 06:46] LABS: A/G RATIO 0.69; ALANINE AMINOTRANSFERASE,ALT 201.0 U/L (14-59); ASPARTATE AMNIOTRANSFERASE,AST 128.0 U/L (15-37); BILIRUBIN TOTAL 0.6 mg/dL (0.2-1.0); BLOOD UREA NITROGEN,BUN 12.0 mg/dL (7-18); CARBON DIOXIDE,CO2 28.0 mmol/L (21-32); CHLORIDE,CL 104.0 mmol/L (98-107); CREATININE 0.6 mg/dL (0.55-1.02); EST CRCL DRUG DOSING (CG) 102.06 mL/min; ESTIMATED GFR 110.0 mL/min (>=60); GLUCOSE RANDOM 301.0 mg/dL (70-99); POTASSIUM,K 4.4 mmol/L (3.5-5.1); PROTEIN TOTAL,TP 6.6 g/dL (6.4-8.2); SODIUM,NA 139.0 mmol/L (136-145)
[2025-04-01] MEDS ORDERED: 50% Dextrose in Water 50 ML Syringe IVPUSH PRN (18:27)
[2025-04-01 19:28] VITALS: BP 125/79; PULSE 88
[2025-04-01] MEDS: Insulin Glarg,Human.Rec.Analog 100 Unit/ML 10 ML Vial SUBCUT ONE (20:07)
== END 2025-04-01 19:35 | disposition home or self-care (01) ==
LOC: DL.ED 00:16 → UNDOADMOB 06:09 → DL.MS 06:09
PROVIDERS: ADMIT Internal Medicine; ATTEND Internal Medicine
DX: E11.65 Type 2 diabetes mellitus with hyperglycemia (principal); J45.909 Unspecified asthma, uncomplicated; D72.110 Idiopathic hypereosinophilic syndrome [IHES]; E83.52 Hypercalcemia; I10 Essential (primary) hypertension; K76.0 Fatty (change of) liver, not elsewhere classified; E78.5 Hyperlipidemia, unspecified; E88.09 Other disorders of plasma-protein metabolism, not elsewhere classified; E66.812 Obesity, class 2; Z79.4 Long term (current) use of insulin; Z88.5 Allergy status to narcotic agent; Z68.35 Body mass index [BMI] 35.0-35.9, adult; Z87.891 Personal history of nicotine dependence; Z79.899 Other long term (current) drug therapy
CPT/HCPCS: 36415; 71045; 80048; 80053; 80061; 80307; 81025; 82947; 83036; 83605; 83735; 84484; 85025; 93005; 96361; 96374; 99285; A9270; J1200; J1815; J7030; 99222; 99238; G0378

== ENCOUNTER 2025-05-05 18:54 | Emergency (ER) | payer MEDICAID ==
[2025-05-05 19:36] LABS: BASOPHILS PERCENT AUTO 1.4 % (0.0-1.0); EOSINOPHILS PERCENT AUTO 8.4 % (1.0-3.0); LYMPHOCYTES PERCENT AUTO 28.3 % (20.5-50.1); MONOCYTES PERCENT AUTO 6.0 % (2-8); NEUTROPHILS PERCENT AUTO 55.9 % (42.2-75.2); PLATELET COUNT,PLT 246 10^3/uL (150-450); RED BLOOD CELL COUNT 4.22 10^6/uL (4.2-5.4); WHITE BLOOD CELL COUNT,WBC 10.4 10^3/uL (5.0-10.0)
[2025-05-05 19:57] LABS: ALANINE AMINOTRANSFERASE,ALT 85.0 U/L (14-59); ASPARTATE AMNIOTRANSFERASE,AST 49.0 U/L (15-37); BILIRUBIN TOTAL 0.3 mg/dL (0.2-1.0); BLOOD UREA NITROGEN,BUN 18.0 mg/dL (7-18); CARBON DIOXIDE,CO2 29.0 mmol/L (21-32); CHLORIDE,CL 101.0 mmol/L (98-107); CREATININE 1.11 mg/dL (0.55-1.02); EST CRCL DRUG DOSING (CG) 55.17 mL/min; GLUCOSE RANDOM 283.0 mg/dL (70-99); POTASSIUM,K 4.3 mmol/L (3.5-5.1); PROTEIN TOTAL,TP 7.2 g/dL (6.4-8.2); SODIUM,NA 136.0 mmol/L (136-145)
[2025-05-05 19:59] LABS: A/G RATIO 0.71; ESTIMATED GFR 61.0 mL/min (>=60)
[2025-05-05 20:10] LABS: INR 0.9 (0.9-1.2)
[2025-05-05 20:39] LABS: PTT,PARTIAL THROMBOPLSTIN TIME 28.1 SEC (22.0-34.0)
[2025-05-05 21:00] VITALS: BP 138/87; PULSE 71
[2025-05-05] MEDS: Ketorolac 30 MG/ML SDV IM ONE (21:09)
== END 2025-05-05 21:20 | disposition home or self-care (01) ==
LOC: DL.ED 18:54
DX: J98.11 Atelectasis (principal); M94.0 Chondrocostal junction syndrome [Tietze]; E66.9 Obesity, unspecified; E11.9 Type 2 diabetes mellitus without complications; Z88.8 Allergy status to other drugs, medicaments and biological substances; Z79.899 Other long term (current) drug therapy; Z90.49 Acquired absence of other specified parts of digestive tract; Z68.36 Body mass index [BMI] 36.0-36.9, adult
CPT/HCPCS: 36415; 71101-LT; 80053; 83690; 84484; 85025; 85610; 85730; 93005; 94010; 96372; 99285; J1885